=== PATIENT | male | born 1975 | race Caucasian/White ===

== ENCOUNTER → 2019-02-25 | Outpatient (CLI) | payer OTHER | END | disposition home or self-care (01) | LOC: LAB EV 10:05 → LAB SHORT 10:05 | DX: G89.4 Chronic pain syndrome (principal) | CPT/HCPCS: G0480 ==

== ENCOUNTER 2019-07-15 12:23 | Emergency (ER) | payer OTHER ==
[~2019-07-15] VITALS: Ht 188 cm; Wt 90.3 kg
== END 2019-07-15 14:15 | disposition home or self-care (01) ==
LOC: ER 12:23
DX: S61.012A Laceration without foreign body of left thumb without damage to nail, initial encounter (principal); Z23 Encounter for immunization; W26.0XXA Contact with knife, initial encounter
CPT/HCPCS: 12001; 90471; 99282-25